=== PATIENT | female | born 1995 | race Caucasian/White ===

== ENCOUNTER 2018-08-22 20:07 | Emergency (ER) | payer BC ==
[~2018-08-22] VITALS: Ht 175.3 cm; Wt 113.6 kg
[2018-08-22 20:13] VITALS: BP 131/72; TEMP 97.6
[2018-08-22 21:30] VITALS: PULSE 68
== END 2018-08-22 21:30 | disposition home or self-care (01) ==
LOC: COL.ER 20:07
DX: S51.812A Laceration without foreign body of left forearm, initial encounter (principal); F32.9 Major depressive disorder, single episode, unspecified; E03.9 Hypothyroidism, unspecified; W26.0XXA Contact with knife, initial encounter; Y92.009 Unspecified place in unspecified non-institutional (private) residence as the place of occurrence of the external cause

== ENCOUNTER 2018-08-29 12:00 | Emergency (ER) | payer BC ==
[2018-08-29 12:04] VITALS: BP 146/76; PULSE 77; TEMP 97.9
== END 2018-08-29 12:07 | disposition home or self-care (01) ==
LOC: COL.ER 12:00
DX: S51.812D Laceration without foreign body of left forearm, subsequent encounter (principal); X58.XXXD Exposure to other specified factors, subsequent encounter

== ENCOUNTER 2020-04-27 09:52 | Emergency (ER) | payer BC ==
[~2020-04-27] VITALS: Ht 175.3 cm; Wt 122.7 kg
[2020-04-27 10:01] VITALS: TEMP 98
[2020-04-27] MEDS ORDERED: LEVAQUIN 750MG750 M1 PO (10:47)
[2020-04-27] MEDS ORDERED: SYNTHROID0.05 MG/TA PO (10:48)
[2020-04-27] MEDS ORDERED: ZOFRAN8 MG PO (10:48)
[2020-04-27] MEDS ORDERED: ESTARYLLA 35 MC1 TAB PO (10:49)
[2020-04-27] MEDS ORDERED: ANTIVERT 12.512.5 MG PO (11:05)
[2020-04-27 11:17] VITALS: BP 120/85; PULSE 76
[2020-04-30] MEDS ORDERED: CELEXA 20MG20 MG/TAB PO (08:49)
[2020-04-30] MEDS ORDERED: ANTIVERT 12.512.5 MG PO (12:45)
== END 2020-04-27 11:17 | disposition home or self-care (01) ==
LOC: COL.ER 09:52
DX: R51 Headache (principal); R42 Dizziness and giddiness

== ENCOUNTER 2020-05-02 07:12 | Outpatient (CLI) | payer BC ==
[2020-05-02] VITALS (8 sets, daily range): BP systolic 106–132; BP diastolic 61–90; PULSE 57–81
[~2020-05-02] VITALS: Ht 175.3 cm; Wt 130.8 kg
[~2020-05-02 07:12] MED LIST: ANTIVERT 12.512.5 MG PO; CELEXA 20MG20 MG/TAB PO; ESTARYLLA 35 MC1 TAB PO; LEVAQUIN 750MG750 M1 PO; SYNTHROID0.05 MG/TA PO; ZOFRAN8 MG PO
[2020-05-02] MEDS ORDERED: EXCEDRIN1 TAB PO (07:32)
[2020-05-02] MEDS ORDERED: ALEVE 220MG220 MG PO (07:33)
[2020-05-02] MEDS ORDERED: LEVAQUIN 750MG750 M1 PO (07:35)
[2020-05-02 09:24] LABS: CSF APPEARANCE CLEAR; CSF COLOR COLORLESS; CSF RBC 31 /mm3 (0-0)
[2020-05-02 09:34] LABS: GLUCOSE,CSF 53 mg/dL (40-70); TOTAL PROTEIN,CSF 32 mg/dL (15-45)
[2020-05-02 09:49] LABS: CSF MONONUCLEAR 86 % (70-100); CSF POLYMORPHONUCLEAR 14 % (0-6)
--- NOTE | 2020-05-02 10:45 | NUR ---
PT READY FOR DISCHARGE, DENIES HEADACHE, PUNCTURE SITE LOOKS GOOD WITHOUT ANY REDNESS OR DRAINAGE. PT VERBALIZES UNDERSTANDING OF DC INSTRUCTIONS. I ESCORTED HER TO EXIT VIA WHEELCHAIR.
== END 2020-05-02 10:45 | disposition home or self-care (01) ==
LOC: COL.RAD 07:12
PROVIDERS: Psychiatry & Neurology Neurology
DX: R51 Headache (principal)

== ENCOUNTER → 2020-10-22 | Outpatient (CLI) | payer BC ==
[~2020-10-22] MED LIST changes: +ALEVE 220MG220 MG PO; +EXCEDRIN1 TAB PO
== END ==
LOC: MHCPAIN 11:03
DX: M54.81 Occipital neuralgia (principal); M79.2 Neuralgia and neuritis, unspecified; M54.2 Cervicalgia
CPT/HCPCS: J1040

== ENCOUNTER → 2021-02-10 | Outpatient (CLI) | payer BC | LOC: MHCPAIN 13:48 | DX: M54.81 Occipital neuralgia (principal); G89.29 Other chronic pain | CPT/HCPCS: G0463; J1040 ==

== ENCOUNTER → 2021-06-16 | Outpatient (CLI) | payer BC | LOC: MHCPAIN 13:48 | DX: M54.81 Occipital neuralgia (principal); M54.2 Cervicalgia; R51.9 Headache, unspecified | CPT/HCPCS: G0463; J1040 ==

== ENCOUNTER → 2021-10-21 | Outpatient (CLI) | payer BC | LOC: MHCPAIN 14:30 | DX: M54.81 Occipital neuralgia (principal); R51.9 Headache, unspecified | CPT/HCPCS: G0463; J1040 ==

== ENCOUNTER → 2022-02-17 | Outpatient (CLI) | payer BC | LOC: MHCPAIN 13:44 | DX: M54.81 Occipital neuralgia (principal); G50.0 Trigeminal neuralgia; R51.9 Headache, unspecified | CPT/HCPCS: G0463; J1040 ==

== ENCOUNTER → 2022-08-31 | Outpatient (CLI) | payer BC | LOC: MHCPAIN 12:58 | DX: M54.81 Occipital neuralgia (principal); M79.2 Neuralgia and neuritis, unspecified; R51.9 Headache, unspecified | CPT/HCPCS: G0463; J1040 ==

== ENCOUNTER → 2022-12-22 | Outpatient (CLI) | payer BC | LOC: MHCPAIN 13:51 | DX: M54.81 Occipital neuralgia (principal); G44.86 Cervicogenic headache; M54.2 Cervicalgia | CPT/HCPCS: G0463; J1040 ==